=== PATIENT | female | born 1980 | race Two or more races ===

== ENCOUNTER 2025-03-17 12:52 | Emergency (ER) | payer MEDICAID, SELFPAY ==
--- NOTE | 2025-03-17 12:57 | EKG_ITS ---
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
[2025-03-17 12:58] VITALS: BP 127/81; PULSE 81; RESP 16; TEMP 36.8; O2SAT 97; BMI 32.5
--- NOTE | 2025-03-17 13:22 | XR_ITS ---
EXAMINATION: PA lateral chest 2 views TECHNIQUE: Upright PA lateral chest 2 views Date and time: March 17, 2025, 1346 hours INDICATIONS: Shortness of breath chest pain beginning 3 days ago FINDINGS: Mild enlargement left ventricle Mild vascular congestion. No lobar pneumonia or pulmonary edema IMPRESSION: Mild enlargement left ventricle Mild vascular congestion
--- NOTE | 2025-03-17 13:27 | PD.EDRME ---
Rapid Medical Screening Exam RME Arrival date/time: 03/17/25 12:52 Chief Complaint: Chest Pain Time Seen by Provider: 03/17/25 13:15 Vital signs: Vital Signs Temperature 98.3 F 03/17/25 12:58 Pulse Rate 81 03/17/25 12:58 Respiratory Rate 16 03/17/25 12:58 Blood Pressure 127/81 03/17/25 12:58 Pulse Oximetry (%) 97 03/17/25 12:58 Oxygen Delivery Method Room Air 03/17/25 12:58 RME Narrative: 44-year-old female past medical history of hypertension, social alcohol use presents to the ER complaining of epigastric and substernal chest pain which began this morning when she was walking to the bathroom and has been persistent since then. Patient has mild shortness of breath. Denies nausea vomiting, fever, diarrhea. Denies smoking or drug abuse.
[2025-03-17 13:54] LABS: Basophils # (Auto) 0.1 Thou/mm3 (0.0-0.2); Basophils % (Auto) 0 % (0-2.5); Eosinophils # (Auto) 0.0 Thou/mm3 (0.0-0.5); Eosinophils % (Auto) 0 % (0-10); Hematocrit 39.8 % (36.0-46.0); Hemoglobin 13.2 g/dL (12.0-16.0); Immature Granulocytes Auto 0.05 Thou/mm3 (0.00-0.00); Lymphocytes # (Auto) 1.1 Thou/mm3 (1.0-4.8); Lymphocytes % (Auto) 9 % (10-50); Mean Corpuscular HGB Conc 33.2 g/dl (31.0-37.0); Mean Corpuscular Hemoglobin 30.5 pg (25.0-35.0); Mean Corpuscular Volume 92 fL (80-100); Monocytes # (Auto) 0.2 Thou/mm3 (0.0-0.8); Monocytes % (Auto) 2 % (0-12); Neutrophils # (Auto) 11.0 Thou/mm3 (1.8-7.7); Neutrophils % (Auto) 89 % (37-80); Nucleated Red Blood Cell # 0.00 Thou/mm3 (0.00-0.00); Nucleated Red Blood Cell % 0 /100 WBC (0); Platelet Count 359 Thou/mm3 (140-440); RDW Standard Deviation 42.8 fL (36.4-46.3); Red Blood Count 4.33 Miln/mm3 (4.00-5.20); White Blood Count 12.4 Thou/mm3 (3.6-11.0)
[2025-03-17 14:29] LABS: Collection Type, Urine Clean Catch
[2025-03-17 14:42] LABS: Bacteria,Urine Rare; Bilirubin,Urine Negative (Negative); Blood,Urine 3+ (Negative); Clarity,Urine Clear (Clear/Hazy); Color,Urine Yellow (Lt Yel-Yel); Culture Indicated,Urine Not Indicated; Glucose, Urine Negative (Negative); Ketones,Urine 1+ (Negative); Leukocyte Esterase,Urine Negative (Negative); Nitrite,Urine Negative (Negative); PH,Urine 6.0 (5.0-7.0); Protein,Urine Trace (Neg - Trace); RBC,Urine 21 /hpf (0-3); Specific Gravity,Urine 1.027 (1.001-1.035); Squamous Epithelial Cell,Urine 5 /hpf (0-5); Urobilinogen,Urine Negative mg/dL (0.0-1.0); WBC,Urine 2 /hpf (0-5)
[2025-03-17 14:43] LABS: Amphetamine/Methamp Scrn,U Negative (Negative); Barbiturate Screen,Urine Negative (Negative); Benzodiazepines Screen,Urine Negative (Negative); Benzoylecgonine Screen, Ur Negative (Negative); Fentanyl Screen,Urine Negative (Negative); Opiate Screen,Urine Negative (Negative); THC Screen,Urine Negative (Negative)
[2025-03-17 14:53] LABS: Albumin, Serum 4.4 gm/dL (3.5-5.0); Albumin/Globulin Ratio 1.8 (1.2-2.2); Alkaline Phosphatase 66 U/L (46-116); Anion Gap 12 (7-16); Aspartate Amino Transferase 13 U/L (0-34); BUN/Creatinine Ratio 15 Ratio (12-20); Bilirubin,Total 0.4 mg/dL (0.3-1.2); Blood Urea Nitrogen 12 mg/dL (9-23); Calcium 9.0 mg/dL (8.3-10.6); Calcium (Corrected) 9.0 mg/dL (8.5-10.1); Carbon Dioxide 23.4 mMol/L (20.0-31.0); Chloride 105 mMol/L (98-107); Creatinine (Component) 0.8 mg/dL (0.6-1.3); Estimated Creatinine Clearance 100.2 mL/min (>60); Globulin 2.5 gm/dL (2.3-3.5); Glucose 122 mg/dL (74-106); Lipase 30 U/L (12-53); Osmolality,Calculated 280 (275-295); Potassium 4.2 mMol/L (3.4-5.1); Sodium 140 mMol/L (136-145); Total Protein 6.9 gm/dL (5.7-8.2); Troponin I < 0.020 ng/mL (0.0-0.045); eGFR > 60 See Note
[2025-03-17 14:54] LABS: B-Type Natriuretic Peptide 103 pg/mL (0-100)
[2025-03-17 14:55] LABS: Alanine Aminotransferase < 7 U/L (10-49)
[2025-03-17 15:29] LABS: INR 0.9 (0.9-1.3); Prothrombin Time 9.9 Seconds (9.0-12.2)
[2025-03-17 16:37] VITALS: BP 150/89; PULSE 66; RESP 20; TEMP 36.8; O2SAT 96
--- NOTE | 2025-03-17 17:05 | EDNOTE_ITS ---
<Statement entered by Krystin Jones MD - 03/17/25 18:09> As co-signing physician, I was present and available for consult and examined the patient. I concur with the plan and care as documented by the resident physician ED General RME/HPI General Chief complaint: Chest Pain Stated complaint: CHEST PAIN, SOB STARTING AT 08:00 Time Seen by Provider: 03/17/25 13:15 Arrival date/time: 03/17/25 12:52 RME / HPI RME / HPI narrative: Maryjane is a 44 y/o female with PMHx of HTN, and recent celluitis who comes in for evaluation of acute onset chest pain, earlier this morning, location is midsternal, radiates to bilateral anterior chest mcgowan including her back, not relieved by [id number] Tylenol, has never had the symptoms for, described as chest pressure, rated 9 out of 10, with no associated diaphoresis numbness, tingling, nausea. Patient reports has never had the symptoms before decided to come to the ER for further evaluation. She does not have a heart doctor, and she sees someone at [facility] for primary care needs. She says she was recently scheduled to get an ultrasound of her heart done, however has not got it done yet. She says that she has shortness of breath on exertion, however is unsure if she has worsening chest pain upon exertion. He is unsure if her legs get swollen. She says that her face appears a bit flushed right now because she has no make-up. She said that she referred was recently referred to a vascular surgeon for evaluation of some artery or vein in her legs, however is unsure what it is for. She drinks about 10 beers on Tuesday and Tuesday and she has done this for about 15 years. Denies any smoking history, or history of oral IV drug use. She has no family history of cardiac history besides both of her parents have hypertension. She has no other complaints at this time. Related Data Previous Rx's ?Medication ?Instructions ?Recorded isosorbide mononitrate 30 mg 30 mg PO QDAY 2 weeks #14 tabs 03/17/25 tablet,extended release 24 hr Allergies Allergy/AdvReac Type Severity Reaction Status Date / Time No Known Allergies Allergy Verified 03/17/25 12:55 Review of Systems Review of Systems Narrative Review of Systems: 12 point ROS reviewed and is otherwise negative unless stated directly in the HPI ED Exam Narrative Physical exam: General: AAOx3, NAD, obese female HEENT: Moist mucous membranes, conjunctiva clear, EOMI, PERRLA, Cardiovascular: S1, S2, radial pulses +2 bilat, RRR, reproducible chest pain, Pulmonary: CTAB bilat no cough, no wheezing, not on oxygen GI: No tenderness to light or deep palpitation, no guarding, rigidity, rebound tenderness or distension Extremities: Trace edema in lower extremities bilaterally, dorsalis pedis pulses +2 bilaterally Neuro: AAOx3, no focal motor or sensory deficits in the UE or LE bilat Psych: Good judgement, thought and behavior Course Quality Measures none Orders Category Date Time Status Bedside COVID-19 Antigen Test NOW Care 03/17/25 17:02 Active EKG (ED ONLY) *Do not use* NOW Care 03/17/25 12:57 Completed EKG (ED Only) Stat Exams 03/17/25 12:57 Draft XR chest 2V Stat Exams 03/17/25 13:22 Completed B-Type Natriuretic Peptide Stat Lab 03/17/25 13:40 Completed CBC Stat Lab 03/17/25 13:40 Completed Comprehensive Metabolic Panel Stat Lab 03/17/25 13:40 Completed Drug Screen,Urine Stat Lab 03/17/25 14:10 Completed Influenza A & B Rapid Panel Stat Lab 03/17/25 17:10 Received Lipase Stat Lab 03/17/25 13:40 Completed Prothrombin Time with INR Stat Lab 03/17/25 13:40 Completed Troponin I Stat Lab 03/17/25 13:40 Completed Troponin I Stat Lab 03/17/25 17:27 Completed Urinalysis, C/S if Indicated Stat Lab 03/17/25 14:10 Completed Acetaminophen Ivpb [Ofirmev Inj] Med 03/17/25 17:39 Active 1,000 mg in 100 ml IV X1 Famotidine Inj [Pepcid Inj] Med 03/17/25 17:38 Discontinued 40 mg IVP X1 ONE Pantoprazole [Protonix] Med 03/17/25 17:03 Discontinued 40 mg PO X1 ONE mg Hyd/Al Hyd/Sherry Susp [Maalox Susp] Med 03/17/25 17:38 Discontinued 30 ml PO X1 ONE Vital Signs Vital signs: Vital Signs Temperature 98.3 F 03/17/25 12:58 Pulse Rate 81 03/17/25 12:58 Respiratory Rate 16 03/17/25 12:58 Blood Pressure 127/81 03/17/25 12:58 Pulse Oximetry (%) 97 03/17/25 12:58 Oxygen Delivery Method Room Air 03/17/25 12:58 Discharge Plan Plan Patient Disposition: HOME (Self Care) Prescriptions/Referrals Prescriptions/Med Rec: New isosorbide mononitrate 30 mg tablet extended release 24 hr 30 mg PO QDAY 14 Days Qty: 14 0RF Rx Instructions: Take one tablet by mouth every day Referrals: No Primary/Family,Physician [Primary Care Provider] - In 1 week Problem List Clinical Impression: Chest pain due to GERD Patient/Caregiver Discharge Instructions Discharge Activity: activity as tolerated Education Materials: GERD Dc, ED GERD (Adult) Additional Instructions: Discharge instructions Follow-up with your PCP within 1 week Continue with your omeprazole We are starting you on a medicine called Imdur, take as prescribed as this is for chest pain We are recommending you to follow-up outpatient for referral to cardiology for outpatient stress test as you may have underlying heart disease. Return to the ED if you have worsening chest pain or if your symptoms return Speak with your PCP in continuing with getting an echocardiogram as you had one ordered already with your primary care doctor. Return to ED if your symptoms worsen or return Print Language: Macedonian Stand Alone Forms: [employer] Award Info., Patient Portal Info Letter MDM Narrative MDM hospital course (for use when minimal MDM required): 1742: Patient's initial troponin was negative, BNP of 103, slight leukocytosis 12.4, urinalysis does show +3 blood and 21 RBCs. will order repeat troponin at this time. Patient's BNP is slightly elevated at 103, however she does not requiring oxygen at this time, and she is only having minimal trace edema in her lower extremities. Chest x-ray does show mild vascular congestion and possible left ventricular enlargement and this could be related to possible alcoholic cardiomyopathy, however at this time she may not require inpatient criteria or observation and may be able to follow-up outpatient. She is supposed to get an outpatient echocardiogram soon as well. Will give her GI cocktail with Maalox, Pepcid 40 in addition to Protonix. 1800: Troponin negative x2. Pt could have possible underlying CAD and CHF, however, at this time since patient is not on oxygen and does not demonstrate strong evidence of active ischemia, we will recommend her to follow up outpatient with her primary care doctor for an outpatient stress test. I will start her on Imdur for prophylactic chest pain. She is to return to the ER if she has worsening chest pain and her symptoms return. EKG Interpretation EKG #1: EKG Interpretation: Sinus rhythm, T wave inversions in V2 and V3, heart rate 78, QT 384 Medication Administration(s) Medication Administration History Acetaminophen (Ofirmev Inj) 1,000 mg in 100 mls @ 250 mls/hr IV X1 ONE Stop: 03/17/25 18:02 Discontinued Medications Al Hydrox/Mg Hydrox/Simethicone (Mg Hyd/Al Hyd/Sherry (Maalox Reg) Susp 30 Ml Udc) 30 ml PO X1 ONE Stop: 03/17/25 17:39 Famotidine (Famotidine Inj 10 Mg/Ml Vial 2 Ml) 40 mg IVP X1 ONE Stop: 03/17/25 17:39 Pantoprazole Sodium (Pantoprazole 40 Mg Tablet) 40 mg PO X1 ONE Stop: 03/17/25 17:04 Last Admin: 03/17/25 17:23 Dose: 40 mg Documented By: DARRELL Diagnosis Diagnoses ruled out and/or further discussions: GERD, Anxiety, CAD, Costochondritis, ACS, CHF
[2025-03-17] MEDS: PANTOPRAZOLE 40 MG TABLET PO (17:23)
[2025-03-17 17:54] LABS: Troponin I < 0.020 ng/mL (0.0-0.045)
[2025-03-17 18:00] LABS: Influenza A Ag Negative; Influenza B Ag Negative
[2025-03-17 18:15] VITALS: BP 142/82; PULSE 67; RESP 16; TEMP 37.2; O2SAT 96
[2025-03-17] MEDS: ACETAMINOPHEN 500 MG TABLET 1000 MG PO (19:19)
[2025-03-17] MEDS: MG HYD/AL HYD/SIME (Maalox Reg) SUSP 30 ML UDC PO (19:19)
[2025-03-17] MEDS: FAMOTIDINE 20 MG TABLET 40 MG PO (19:19)
[2025-03-17 19:39] VITALS: BP 157/80; PULSE 76; RESP 16; TEMP 36.9; O2SAT 100
== END 2025-03-17 19:40 | disposition home or self-care (01) ==
PROVIDERS: Physician Assistant
DX: M94.0 Chondrocostal junction syndrome [Tietze] (principal); F41.9 Anxiety disorder, unspecified; I11.0 Hypertensive heart disease with heart failure; I25.10 Atherosclerotic heart disease of native coronary artery without angina pectoris; I50.9 Heart failure, unspecified; K21.9 Gastro-esophageal reflux disease without esophagitis
CPT/HCPCS: 36415; 71046; 80053; 80307; 81001; 83690; 83880; 84484; 85025; 85610; 87502; 87811; 93005; 99284; A9270